=== PATIENT | female | born 1990 | race Caucasian/White ===

== ENCOUNTER → 2022-03-14 | Outpatient (CLI) | payer OTHER, SELFPAY ==
[2022-03-20 14:55] LABS: HPV Reflexed? NOT INDICATED
== END | disposition home or self-care (01) ==
LOC: LABSPEC 16:13
PROVIDERS: Visit Provider Obstetrics & Gynecology
DX: Z12.4 Encounter for screening for malignant neoplasm of cervix (principal)
CPT/HCPCS: 88175; G0145

== ENCOUNTER 2022-10-29 08:04 | Emergency (ER) | payer OTHER, SELFPAY ==
[2022-10-29 08:05] VITALS: BP 162/96; PULSE 94; RESP 14; TEMP 36.6; O2SAT 100; BMI 39.1
--- NOTE | 2022-10-29 08:37 | ED.RN ---
Ring removed with wire cutters. Patient tolerated well.
--- NOTE | 2022-10-29 08:45 | EDS_ITS ---
HPI History of Present Illness Chief Complaint: Upper Extremity Injury Narrative Narrative: 32-year-old female with insect sting to left ring finger couple days ago. She has her wedding ring on and now she is swollen cough. Denies numbness but states it is little painful. PFSH PFSH Home Medications hydrocodone-acetaminophen 5-325mg 5mg-325mg 2 tab PO Q6H PRN PRN Severe Pain (6- 10/10) ##30 03/12/16 [Rx Last Taken Unknown] ibuprofen 600 mg tablet 600 mg PO 4X/DAY PRN pain or cramping #30 tabs 03/12/16 [Rx Last Taken Unknown] Allergy/AdvReac Type Severity Reaction Status Date / Time bee pollen [Bee Pollen] Allergy Swelling Verified 10/29/22 08:07 Bleach (Sodium Hypochlorite) Allergy Swelling Verified 10/29/22 08:07 latex Allergy Hives Verified 10/29/22 08:07 Social History Smoking Status: Never smoker ROS ROS ED Constitutional Constitutional ED: Denies chills, fever(s) or sweats Eyes Eyes: Denies blurry vision or change in vision ENT ENT ED: Denies ear pain or sore throat Cardiovascular Cardiovascular: Denies chest pain, palpitations or racing heartbeat Respiratory/Chest Respiratory/Chest: Denies cough, dyspnea or sputum Gastrointestinal Gastrointestinal: Denies abdominal pain, constipation, diarrhea, nausea or vomiting Genitourinary Genitourinary ED: Denies dysuria, hematuria or urinary frequency Musculoskeletal Musculoskeletal: Denies arthralgias, myalgias or neck pain Integumentary Reports other Details: On the left ring finger ; Denies abscess, Abrasions or rash Neurologic Neurologic: Denies headache(s), paresthesias or weakness Psychiatric Psychiatric: Denies anxiety, depression, suicidal ideation or suicidal thoughts Endocrine Endocrinology: Denies polydipsia or polyuria EXAM Physical Exam Const Vital Signs: 10/29/22 08:05 Temperature 97.8 F Temperature Source Temporal Pulse Rate 94 Respiratory Rate 14 Blood Pressure 162/96 H Blood Pressure Mean 118 Pulse Ox 100 Oxygen Delivery Method Room Air Positive well nourished General Appearance ED: NAD HEENT normocephalic and atraumatic Resp normal respiratory effort Cardio regular rate and regular rhythm Extremity Extremity Narrative: Left ring finger swollen distal to the ring on her left finger proximally. Unable to remove this. Neuro oriented x3 and CN's II-XII intact bilaterally Sensorium / Orientation: alert Motor Exam: strength 5/5 throughout Psych mental status grossly normal MDM MDM MDM Narrative Medical decision making narrative: Patient seen and evaluated for swelling of the left ring finger secondary to wedding ring being stuck on the finger. Apparently she was stung a couple of days ago and the swelling is gotten much worse. Initially was going to attempt to cut this with a black doctor saw however given the following unable to use this. Nursing staff was able to find out pair wire cutters and was able to remove this before I came back to the room. Patient tolerated this well. Patient counseled use Tylenol and ibuprofen. She will keep this elevated as well. Impression: 1. Ring removal 2. Insect Sting Lab Data Attestation: I reviewed the patient's lab results. Discharge Plan Triage Chief Complaint: Upper Extremity Injury ED Provider: Alonso Montez Dx/Rx/DC Orders Prescriptions: No Action hydrocodone-acetaminophen 1 TABLET tablet 2 tab PO Q6H PRN PRN (Reason: Severe Pain (6-10/10)) Qty: 30 0RF ibuprofen 600 MG tablet 600 mg PO 4X/DAY PRN (Reason: pain or cramping) Qty: 30 1RF Primary Care Provider: Care Physician,No Primary Referrals: Care Physician,No Primary [Primary Care Provider] - Activity Restrictions/Additional Instructions: Make sure you keep your swollen finger elevated above your heart. Use ice, Tylenol and ibuprofen. Disposition Disposition: Home, Self Care
== END 2022-10-29 08:59 | disposition home or self-care (01) ==
LOC: ED 08:52
PROVIDERS: Emergency Provider Student in an Organized Health Care Education/Training Program; Visit Provider Student in an Organized Health Care Education/Training Program
DX: T63.891A Toxic effect of contact with other venomous animals, accidental (unintentional), initial encounter (principal); M79.89 Other specified soft tissue disorders
CPT/HCPCS: 10120; 99282